=== PATIENT | male | born 1970 | race Caucasian/White ===

== ENCOUNTER → 2018-09-01 | Outpatient (CLI) | payer OTHER ==
--- NOTE | 2018-09-01 19:14 | Diagnostic Imaging Report ---
INDICATION: Palpable lump in the left breast. COMPARISON: No prior studies are available for comparison. TECHNIQUE: 2D and 3D bilateral diagnostic mammography was performed with computer-aided detection (CAD) system. FINDINGS: A BB marker was placed at the area of palpable abnormality in the left breast just above the left nipple. This is no mass or malignant appearing microcalcifications are seen. Fatty tissue in both breasts is noted. No definite gynecomastia is identified. The axillae are unremarkable. IMPRESSION: No suspicious mammographic features are identified. Even so, sonographic interrogation of the area of palpable abnormality in the left breast is recommended and will be performed today. ACR BI-RADS Category 0: Incomplete. (Needs additional imaging evaluation). Result letter will be mailed to the patient. Note: At least 10% of breast cancer is not imaged by mammography. Dictated by: Dictated on workstation # [id number]
--- NOTE | 2018-09-01 19:16 | Diagnostic Imaging Report ---
INDICATION: Palpable lump in the left breast. COMPARISON: Correlation is made with a diagnostic mammogram earlier the same day. FINDINGS: Sonographic interrogation of the area of palpable abnormality in the left breast was performed. This corresponds to the 4 o'clock location. At this location, 2 cm from the nipple, there is a smoothly marginated mass measuring 5.2 x 1.5 x 3.3 cm. No internal vascularity is seen. This may represent a lipoma. No other abnormalities are detected. IMPRESSION: Benign-appearing circumscribed nodule in the left breast at the area of palpable abnormality suggestive of a lipoma. ACR BI-RADS Category 2: Benign findings. Dictated by: Dictated on workstation # [id number]
== END ==
LOC: RAD 12:00
PROVIDERS: ATTEND Nurse Practitioner Family
DX: N63.20 Unspecified lump in the left breast, unspecified quadrant (principal)
CPT/HCPCS: 76642; 77066